=== PATIENT | male | born 1975 | race American Indian/Alaskan Native ===

== ENCOUNTER 2018-02-05 23:45 | Emergency (ER) | payer OTHER ==
--- NOTE | 2018-02-06 00:26 | XRay Report ---
FINAL REPORT EXAM: XR CHEST 1V AP HISTORY: Chest Pain TECHNIQUE: A single view of the chest was obtained. FINDINGS: The heart size and mediastinum appear normal. There are no infiltrates or congestion. Pleural fluid is not seen. There are several calcified granulomas noted in the right hilum and left lung base. The bones and soft tissues do not show any acute changes. IMPRESSION: No active chest disease.
--- NOTE | 2018-02-06 00:31 | Emergency Department Report ---
ED General Adult HPI - General Chief complaint: Chest Pain Stated complaint: CHEST PAIN Time Seen by Provider: 02/05/18 23:59 Source: patient Mode of arrival: Stretcher Limitations: No Limitations - History of Present Illness Initial comments: Voices possible suicidal ideation previous admits to [facility] described chest pain to the nurses left sided here for evaluation of hearing voices, suicidal ideation, left-sided chest pain 1 day patient denies drug use this poor historian series had left-sided chest pain not clear if it's exertional or rest not clear if it's intermittent or constant denies tearing pain denies syncope denies fever denies cough denies calf pain or swelling -: Gradual, days(s) Radiation: non-radiation Associated Symptoms: chest pain, other (suicidal ideation and hearing voices). denies: confusion, cough, diaphoresis, fever/chills, headaches, loss of appetite , malaise, nausea/vomiting, rash, seizure, shortness of breath, syncope, weakness - Related Data Allergies Allergy/AdvReac Type Severity Reaction Status Date / Time No Known Allergies Allergy Verified 02/05/18 23:58 ED Review of Systems ROS: Stated complaint: CHEST PAIN Other details as noted in HPI Comment: Unobtainable due to pts medical conditions ED Past Medical Hx - Past Medical History Previous Medical History?: No - Surgical History Past Surgical History?: No - Social History Smoking Status: Current Every Day Smoker Substance Use Type: None ED Physical Exam - General Limitations: No Limitations General appearance: alert, anxious - Head Head exam: Present: atraumatic, normocephalic - Eye Eye exam: Present: normal appearance, PERRL, EOMI - ENT ENT exam: Present: normal exam, normal orophraynx. Absent: mucous membranes dry , mucous membranes moist - Neck Neck exam: Present: normal inspection. Absent: tenderness, meningismus - Respiratory Respiratory exam: Present: normal lung sounds bilaterally. Absent: respiratory distress, wheezes, rales, rhonchi, stridor, chest wall tenderness - Cardiovascular Cardiovascular Exam: Present: regular rate, normal rhythm - GI/Abdominal GI/Abdominal exam: Present: soft. Absent: distended, tenderness, guarding, rebound, rigid, mass, pulsatile mass - Extremities Exam Extremities exam: Present: normal inspection, normal capillary refill. Absent: pedal edema, joint swelling - Back Exam Back exam: Present: normal inspection. Absent: full ROM, tenderness, CVA tenderness (R), CVA tenderness (L), muscle spasm, paraspinal tenderness, vertebral tenderness - Neurological Exam Neurological exam: Present: alert, CN II-XII intact. Absent: motor sensory deficit - Psychiatric Psychiatric exam: Present: anxious, flat affect, suicidal ideation - Skin Skin exam: Absent: cyanosis, diaphoretic, erythema, urticaria, vesicles, petechiae ED Course Vital Signs 02/05/18 02/06/18 02/06/18 23:58 01:11 01:17 Temperature 98.5 F Pulse Rate 111 H 108 H Respiratory 19 19 Rate Blood Pressure 148/89 O2 Sat by Pulse 99 99 Oximetry ED Medical Decision Making - Lab Data Result diagrams: 02/06/18 00:31 02/06/18 00:31 - EKG Data -: EKG Interpreted by [place] EKG shows normal: sinus rhythm Rate: tachycardia - EKG Data Interpretation: LVH (no acute ischemic changes), other - Radiology Data Radiology results: report reviewed - Medical Decision Making Patient was given IV fluids and benzos he was cleared medically he was stable for evaluation by psychiatry for suicidal ideation. He was placed on 1013 in the gravely disabled nature the patient with his wrist to self and others he will need psychiatric evaluation he is medically cleared for further evaluation of psychosis and suicidal ideation Critical care attestation.: If time is entered above; I have spent that time in minutes in the direct care of this critically ill patient, excluding procedure time. ED Disposition Clinical Impression: Psychosis, Suicidal ideation Disposition: [id number] PSY HOSP/PSY UNIT Is pt being admited?: No Condition: Stable Referrals: PRIMARY CARE [Primary Care Provider] - 3-5 Days Time of Disposition: 04:49
[2018-02-06 00:46] LABS: Basophils % (Auto) 0.3 % (0.0-1.8); Eosinophils % (Auto) 0.3 % (0.0-4.3); Hematocrit 42.3 % (35.5-45.6); Hemoglobin 14.3 gm/dl (11.8-15.2); Lymphocytes # (Auto) 0.7 K/mm3 (1.2-5.4); Lymphocytes % (Auto) 13.5 % (13.4-35.0); Mean Corpuscular HGB Conc 34 % (32-34); Mean Corpuscular Hemoglobin 34 pg (28-32); Mean Corpuscular Volume 101 fl (84-94); Monocytes # (Auto) 0.3 K/mm3 (0.0-0.8); Monocytes % (Auto) 6.9 % (0.0-7.3); Platelet Count 212 K/mm3 (140-440); Red Blood Count 4.18 M/mm3 (3.65-5.03)
[2018-02-06 00:55] LABS: INR 0.9 (0.87-1.13)
[2018-02-06 00:56] LABS: Partial Thromboplastin Time 24.8 Sec. (24.2-36.6)
[2018-02-06] MEDS ORDERED: NACL 0.9% 1000 ML 1,000 ML ONE (01:00)
[2018-02-06] MEDS ORDERED: ATIVAN ONE (01:00)
[2018-02-06 01:02] LABS: Alanine Aminotransferase 19 units/L (7-56); Albumin 4.3 g/dL (3.9-5); BUN/Creatinine Ratio 15; Blood Urea Nitrogen 12 mg/dL (9-20); Calcium 9.4 mg/dL (8.4-10.2); Hemolysis Index 7; Lipase 29 units/L (13-60)
[2018-02-06] MEDS ORDERED: ATIVAN IV ONE (01:02)
[2018-02-06] MEDS ORDERED: NACL 0.9% 1000 ML 1,000 ML IV ONE (01:02)
[2018-02-06 01:22] LABS: Bilirubin,Urine NEG (Negative); Blood,Urine NEG (Negative); Color,Urine Yellow (Yellow); Mucus,Urine FEW /HPF; Protein,Urine <15 mg/dL mg/dL (Negative); WBC,Urine < 1.0 /HPF (0.0-6.0)
[2018-02-06 01:29] LABS: Benzodiazepines Screen,Urine PRESUMPTIVE NEGATIVE; Methadone Screen,Urine PRESUMPTIVE NEGATIVE; Opiate Screen,Urine PRESUMPTIVE NEGATIVE
[2018-02-06 01:55] LABS: Amphetamine Screen,Urine PRESUMPTIVE POSITIVE; Cannabinoid Screen,Urine PRESUMPTIVE POSITIVE; Cocaine Screen,Urine PRESUMPTIVE POSITIVE
[2018-02-06] MEDS ORDERED: HYDROGEN PEROXIDE ONE (13:13)
--- NOTE | 2018-02-07 11:21 | Consultation ---
History of Present Illness - Reason for Consult Consult date: 02/07/18 Reason for consult: Mental Health Evaluation Requesting physician: JOSHUA JOAQUIN - Chief Complaint Chief complaint: "I am stressed" - History of Present Psychiatric Illness 42 y.o. AA male presenting to the ER for SI's. Today the patient is calm and cooperative during the assessment. He stated being on probation and his life is all "messed up." He stated having a substance abuse problem that has gotten worse over the past few months. He stated attending several rehabs services in the past, but find himself relapsing often. He stated that he worries about his future, so he self medicate using recreational drugs. He cannot remember if he told a staff member yesterday that he was suicidal. He is adamant about wanting help for his substance abuse and assistance contacting his mortgage loan officer. He denies SI/HI's and AVH's. He rate his depression 6/10, with 10 being the worse. He stated having a poor appetite and erratic sleep. He denies any manic episodes in the past. He acknowledged alcohol consumption (etoh) socially. Medications and Allergies Allergies Allergy/AdvReac Type Severity Reaction Status Date / Time No Known Allergies Allergy Verified 02/05/18 23:58 Home Medications Medication Instructions Recorded Confirmed Last Taken Type Unobtainable 02/07/18 02/07/18 Unknown History Past psychiatric history - Past Medical History Past Medical History: No medical history Past Surgical History: No surgical history - past Psychiatric treatment and history psychiatric treatment history: Multiple rehab services in the past. Denies a fam psy hx. - Social History Social history: lives with family Mental Status Exam - Vital signs Last Vital Signs Temp 97.7 F 02/07/18 08:04 Pulse 78 02/07/18 08:04 Resp 18 02/07/18 08:04 BP 128/79 02/07/18 08:04 Pulse Ox 96 02/07/18 08:04 - Exam Narrative exam: MSE: Appearance: calm, cooperative Behavior: regular eye contact Speech: regular rate and tone Mood: "depressed and anxious" Affect: congruent to mood Thought Process: circumstantial Thought Content: denies SI/HI's and AVH's Motor Activity: lying in bed Cognition: A/O x 3 Insight: variable Judgment: variable Results Result Diagrams: 02/06/18 00:31 02/06/18 00:31 All other labs normal. Assessment and Plan Assessment and plan: Impression: MDD, Severe Type. Substance Use DO (cocaine). Cannabis Use DO. Today the patient is calm and cooperative during the assessment. DDx: R/O Bipolar DO, R/O Substance Induced Mood DO Recommendation/Plan: Continue 1013 and reassess the patient in 24 hours. Start Remeron 15 mg PO HS for depression and Vistaril 25 mg PO Q6hrs PRN for anxiety. Discussed possible suicidality/medication induced clarissa with patient reference Remeron.
[2018-02-07] MEDS ORDERED: VISTARIL PO PRN (11:44)
[2018-02-07] MEDS: REMERON PO SCH (23:56)
--- NOTE | 2018-02-08 15:02 | Progress Note ---
Subjective - Reason for Consult Consult date: 02/08/18 Reason for consult: Psychiatry Follow-up - Chief Complaint Chief complaint: "I feel better" 42 y.o. AA male presenting to the ER for SI's. Today the patient is calm and cooperative during the assessment. He stated that he feel much better today after reflecting on his life. He stated that he look forward to completing a rehab services and staying "clean" for good. He stated getting "lots of rest" last night. He denies SI/HI's and AVH's. He denies any side effects of his medication. Mental Status Exam - Vital signs Last Vital Signs Temp 97.9 F 02/08/18 12:21 Pulse 98 H 02/08/18 12:21 Resp 20 02/08/18 14:23 BP 108/75 02/08/18 12:21 Pulse Ox 100 02/08/18 14:23 - Exam Narrative exam: MSE: Appearance: calm, cooperative Behavior: regular eye contact Speech: regular rate and tone Mood: "better" Affect: congruent to mood Thought Process: linear Thought Content: denies SI/HI's and AVH's Motor Activity: lying in bed Cognition: A/O x 3 Insight: fair Judgment: fair Assessment and Plan Impression: MDD, Severe Type. Substance Use DO (cocaine). Cannabis Use DO. Today the patient is calm and cooperative during the assessment. DDx: R/O Bipolar DO, R/O Substance Induced Mood DO Recommendation/Plan: Evaluate 1013 in 24 hours to determine proper dispo. Continue Remeron 15 mg PO HS for depression and Vistaril 25 mg PO Q6hrs PRN for anxiety. Discussed possible suicidality/medication induced clarissa with patient reference Remeron.
[2018-02-08] MEDS: REMERON PO SCH (22:24)
--- NOTE | 2018-02-09 14:58 | Progress Note ---
Subjective - Reason for Consult Consult date: 02/09/18 Reason for consult: Psychiatric Follow-up Evaluation - Chief Complaint Chief complaint: "I feel better" 42 y.o. AA male presenting to the ER for SI's. Today the patient is calm and cooperative during the assessment. He stated that he feel much better today after reflecting on his life. He stated that he look forward to completing a rehab services and staying "clean" for good. He stated getting "lots of rest" last night. He denies SI/HI's and AVH's. He denies any side effects of his medication. Mental Status Exam - Vital signs Last Vital Signs Temp 98.5 F 02/09/18 08:17 Pulse 80 02/09/18 08:17 Resp 18 02/09/18 08:17 BP 101/61 02/09/18 08:17 Pulse Ox 95 02/09/18 08:17
[2018-02-09] MEDS: REMERON PO SCH (22:10)
--- NOTE | 2018-02-10 07:39 | Progress Note ---
Subjective - Reason for Consult Consult date: 02/10/18 Reason for consult: Psychiatry Follow-up - Chief Complaint Chief complaint: "Good morning" 42 y.o. AA male presenting to the ER for SI's. Today the patient is calm and cooperative during the assessment. He stated that he want to stay clean off "drugs." He stated that getting his life together is priority. He denies SI/HI' s and AVH's. He denies any side effects of his medications. Mental Status Exam - Vital signs Last Vital Signs Temp 98.1 F 02/09/18 21:46 Pulse 84 02/09/18 21:46 Resp 18 02/09/18 21:46 BP 107/62 02/09/18 21:46 Pulse Ox 96 02/09/18 21:46 - Exam Narrative exam: MSE: Appearance: calm, cooperative Behavior: regular eye contact Speech: regular rate and tone Mood: "better" Affect: congruent to mood Thought Process: linear Thought Content: denies SI/HI's and AVH's Motor Activity: lying in bed Cognition: A/O x 3 Insight: appropriate Judgment: appropriate Assessment and Plan Impression: MDD, Severe Type. Substance Use DO (cocaine). Cannabis Use DO. Today the patient is calm and cooperative during the assessment. DDx: R/O Bipolar DO, R/O Substance Induced Mood DO Recommendation/Plan: Rescind 1013. Continue Remeron 15 mg PO HS for depression. Discussed possible suicidality/medication induced clarissa with patient reference Remeron. The patient can follow up at [facility] for rehab/outpatient psy services.
[2018-02-10 11:18] VITALS: BP 119/64
== END 2018-02-10 11:30 ==
LOC: EEVIPCON 23:45 → ED 23:45
DX: F32.9 Major depressive disorder, single episode, unspecified (principal); F14.10 Cocaine abuse, uncomplicated; F17.200 Nicotine dependence, unspecified, uncomplicated; F15.10 Other stimulant abuse, uncomplicated; Z79.899 Other long term (current) drug therapy
CPT/HCPCS: 36415; 71045; 80053; 80307; 81001; 83690; 84484; 85025; 85610; 85730; 96374; 99285; G0480; J2060; J7030; 80320; Q0177

== ENCOUNTER 2018-02-16 03:32 | Emergency (ER) | payer SELFPAY ==
[2018-02-16 04:03] VITALS: BP 105/67
== END 2018-02-16 07:44 | disposition left against medical advice (07) ==
LOC: ED 03:32
DX: R07.89 Other chest pain (principal); R06.02 Shortness of breath; Z53.21 Procedure and treatment not carried out due to patient leaving prior to being seen by health care provider
CPT/HCPCS: 93005; 93010